=== PATIENT | female | born 1940 | race Caucasian/White ===

== ENCOUNTER 2021-10-09 10:15 | Outpatient (CLI) | payer MEDICARE, OTHER | END 2021-10-09 10:16 | disposition home or self-care (01) | LOC: TBSIIMAG 10:15 | PROVIDERS: ATTEND Physician Assistant | DX: M54.41 Lumbago with sciatica, right side (principal); M54.42 Lumbago with sciatica, left side; M43.17 Spondylolisthesis, lumbosacral region; M47.817 Spondylosis without myelopathy or radiculopathy, lumbosacral region; M47.816 Spondylosis without myelopathy or radiculopathy, lumbar region | CPT/HCPCS: 72148 ==

== ENCOUNTER 2021-12-27 11:23 | Outpatient (CLI) | payer MEDICARE, OTHER ==
[2021-12-27 12:36] LABS: Hemoglobin 14.1 g/dL (12.0-15.5); Mean Corpuscular HGB CONC 33.9 g/dL (32.0-36.0); Mean Corpuscular Hemoglobin 30.3 pg (27.0-33.0); Mean Corpuscular Volume 89.3 fl (81.6-98.3); Mean Platelet Volume 10.7 fl (7.4-10.4); Platelet Count 190 10x3/uL (150-450); Red Blood Cell (RBC) Count 4.66 10x6/uL (3.90-5.03); White Blood Cell (WBC) Count 6.3 10x3/uL (3.5-10.5)
[2021-12-27 12:51] LABS: Anion Gap 15 mmol/L (10-20); BUN (Urea Nitrogen) 15 mg/dL (9.8-20.1); Calc. Creatinine Clearance 0 mL/min (70-130); Calcium 9.8 mg/dL (7.8-10.44); Carbon Dioxide 27 mmol/L (23-31); Chloride 103 mmol/L (98-107); Estimated GFR 71; Glucose 108 mg/dL (83-110); Potassium 3.8 mmol/L (3.5-5.1); Sodium 141 mmol/L (136-145)
== END 2021-12-27 11:24 | disposition home or self-care (01) ==
LOC: LABBT 11:23
PROVIDERS: ATTEND Neurological Surgery
DX: Z01.818 Encounter for other preprocedural examination (principal); M48.061 Spinal stenosis, lumbar region without neurogenic claudication; Z20.822 Contact with and (suspected) exposure to COVID-19
CPT/HCPCS: 80048; 85027; 87811; 93005; 93010

== ENCOUNTER 2022-01-01 05:45 | Observation (INO) | payer MEDICARE, OTHER ==
[2021-12-28 11:06] VITALS: BMI 26.2
[2022-01-01] MEDS ORDERED: Lidocaine 2% 6 ML SYR ONE (06:34)
[2022-01-01] MEDS ORDERED: fentaNYL Citrate/PF 100 MCG/2 ML SYRINGE ONE (06:34)
[2022-01-01] MEDS ORDERED: Sodium Chloride 0.9% 100 ML ONE (07:09)
[2022-01-01] MEDS ORDERED: CEFAZOLIN 2 GM VIAL ONE (07:09)
[2022-01-01] MEDS ORDERED: Promethazine 25 MG TAB PO PRN (07:12)
[2022-01-01] MEDS ORDERED: Morphine 2 MG/ML VIAL SLOW IVP PRN (07:12)
[2022-01-01] MEDS ORDERED: Milk Of Magnesia 30 ML UDCUP PO PRN (07:12)
[2022-01-01] MEDS ORDERED: Ondansetron PF 4 MG/2 ML Vial IVP PRN (07:12)
[2022-01-01] MEDS ORDERED: Acetaminophen/Codeine 30-300mg Tablet PO PRN (07:12)
[2022-01-01] MEDS ORDERED: diphenhydrAMINE 25 MG CAP PO PRN (07:12)
[2022-01-01] MEDS ORDERED: traMADol HCl 50 MG TAB PO PRN (07:12)
[2022-01-01] MEDS ORDERED: Acetaminophen 325 MG TAB PO PRN (07:12)
[2022-01-01] MEDS ORDERED: tiZANidine HCl 4 MG TAB PO PRN (07:14)
[2022-01-01] MEDS ORDERED: ceFAZolin 2 GM/Dextrose 50 ML 2 GM in Premix Bag 1 BAG IVPB SCH (07:15)
[2022-01-01] MEDS ORDERED: Temazepam 15 MG CAP PO PRN (07:16)
[2022-01-01] MEDS ORDERED: Ketorolac Tromethamine 30 MG/ML VIAL ONE (07:24)
[2022-01-01] MEDS ORDERED: Ondansetron PF 4 MG/2 ML Vial ONE (07:24)
[2022-01-01] MEDS ORDERED: Rocuronium Bromide 10 MG/ML (10ML VIAL) ONE (07:24)
[2022-01-01] MEDS ORDERED: Neostigmine Methylsulfate 3 MG/3 ML SYRINGE ONE (07:24)
[2022-01-01] MEDS ORDERED: Lidocaine 1% PF 5 ML VIAL ONE (07:24)
[2022-01-01] MEDS ORDERED: Glycopyrrolate 0.2 MG/ML 5 ML SYRINGE ONE (07:24)
[2022-01-01] MEDS ORDERED: PROPOFOL 200 MG/20 ML VIAL ONE (07:24)
[2022-01-01] MEDS ORDERED: Dexamethasone 20 MG/5 ML VIAL ONE (07:24)
[2022-01-01] MEDS ORDERED: Promethazine HCl 25 MG/ML VIAL IVPB PRN (08:29)
[2022-01-01] MEDS ORDERED: Promethazine HCl 25 MG/ML VIAL IM PRN (08:29)
[2022-01-01] MEDS ORDERED: Ondansetron HCl/PF 4 MG/2 ML Vial IVP PRN (08:29)
[2022-01-01] MEDS ORDERED: Fentanyl 100 MCG/2 ML VIAL ONE (08:59)
[2022-01-01] MEDS: Sodium Chloride 0.9% 1,000 ML IV SCH ×2 (10:41→19:56)
[2022-01-01] MEDS: Losartan/Hydrochlorothiazide 100 mg/25 mg Tablet PO SCH (10:45)
[2022-01-01] MEDS: CEFAZOLIN 2 GM in Sodium Chloride 0.9% 100 ML IVPB SCH ×2 (13:56→22:23)
[2022-01-01] MEDS: Acetaminophen/Codeine 30-300mg Tablet PO PRN (19:56)
[2022-01-02] MEDS: Acetaminophen/Codeine 30-300mg Tablet PO PRN (02:25)
[2022-01-02 08:24] VITALS: BP 167/73; TEMP 98.3
[2022-01-02] MEDS: Losartan/Hydrochlorothiazide 100 mg/25 mg Tablet PO SCH (09:25)
[2022-01-02] MEDS: Sodium Chloride 0.9% 1,000 ML IV SCH (09:45)
== END 2022-01-02 11:00 | disposition home or self-care (01) ==
LOC: SDC 05:45 → SURG A 07:12
PROVIDERS: ADMIT Neurological Surgery; ATTEND Neurological Surgery
PROC: 0SG1071 Fusion of 2 or more Lumbar Vertebral Joints with Autologous Tissue Substitute, Posterior Approach, Posterior Column, Open Approach (ICD-10-PCS; principal; 2022-01-01)
DX: M48.062 Spinal stenosis, lumbar region with neurogenic claudication (principal); M51.36 Other intervertebral disc degeneration, lumbar region; I10 Essential (primary) hypertension; E78.5 Hyperlipidemia, unspecified; K21.9 Gastro-esophageal reflux disease without esophagitis; Z79.899 Other long term (current) drug therapy
CPT/HCPCS: 20930; 20936; 22612; 22614; 76000; 97116; 97530; C1713 ×2; J0690; J1100; J1885; J2405; J2704; J3010; J3370; J3490

== ENCOUNTER 2022-03-19 13:21 | Outpatient (CLI) | payer MEDICARE, OTHER | END 2022-03-19 13:22 | disposition home or self-care (01) | LOC: TBSIIMAG 13:21 | PROVIDERS: ATTEND Neurological Surgery | DX: M48.062 Spinal stenosis, lumbar region with neurogenic claudication (principal); M47.816 Spondylosis without myelopathy or radiculopathy, lumbar region | CPT/HCPCS: 72100 ==

== ENCOUNTER 2025-02-04 12:22 | Outpatient (CLI) | payer MEDICARE, OTHER | END 2025-02-04 12:23 | disposition home or self-care (01) | LOC: SCSMRI 12:22 | PROVIDERS: ATTEND Physician Assistant | DX: M47.26 Other spondylosis with radiculopathy, lumbar region (principal); R29.2 Abnormal reflex; M62.838 Other muscle spasm; M48.061 Spinal stenosis, lumbar region without neurogenic claudication; Z98.890 Other specified postprocedural states | CPT/HCPCS: 72148 ==